=== PATIENT | female | born 1940 | race Caucasian/White ===

== ENCOUNTER 2017-04-09 12:09 | Emergency (ER) | payer MEDICARE, BC ==
[2017-04-09] MEDS ORDERED: Acetaminophen/HYDROcodone 325-5 MG Tab PO ONE (13:03)
--- NOTE | 2017-04-09 13:09 | EDM.PDOC ---
ED HPI GENERAL MEDICAL PROBLEM - General Chief Complaint: Headache Stated Complaint: HEAD PAIN Time Seen by Provider: 04/09/17 12:45 Source of Information: Reports: Patient History Limitations: Reports: No Limitations - History of Present Illness INITIAL COMMENTS - FREE TEXT/NARRATIVE: Patient is a 76-year-old female who presents to the ED complaining of posterior neck pain. Pain started this past Friday described as stiff neck and has progressively gotten worse to the point where she cannot lay flat. Pain is worsened with movement and also palpation. There is no known precipitating factor contribuiting to this. States with lying flat she has to hold her head up. States she was diagnosed the rash 2 weeks ago and was placed on prednisone and Keflex. Rash completely resolve for approximately 2 days when it came back slightly. States it was located both sides of cheek and to chest. It was not shingles. 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 States current symptoms are nothing like the brain aneurysm. She has dizziness chronically and notes mild incease with neck discomfort. Pain is described as sharp, throbbing, sensation radiating down the right trapezius. She has been utilizing ice and warm compresses with minimal improvement. She denies any fever/chills, nausea or vomiting, vision changes, headache, numbness or tingling, chest pain, SOB, or any additional complaints. Onset Date: 04/04/17 Duration: Constant, Getting Worse, Waxing/Waning Location: Reports: Neck Quality: Reports: Ache, Sharp Severity: Severe Improves with: Reports: None Worsens with: Reports: Movement Context: Reports: Other (unknown) Associated Symptoms: Reports: No Other Symptoms Treatments APPLIED RESEARCH DIRECTOR: Reports: Other (see below) (See hpi) Occipital Pain Score (Numeric/FACES): 8 - Related Data Allergies Allergy/AdvReac Type Severity Reaction Status Date / Time sulfanilamide [Sulfanilamide] Allergy Hives Verified 04/09/17 12:21 Home Meds: Home Meds Acetaminophen/HYDROcodone [[place] 325-5 MG] 1 tab PO Q6H PRN #10 tablet 04/09/17 [Rx] Cyclobenzaprine [Flexeril] 5 mg PO BID #12 tablet 04/09/17 [Rx] Past Medical History Musculoskeletal History: Reports: Other (See Below) Other Musculoskeletal History: back surgery Neurological History: Reports: Cerebral Aneurysms Other Neuro History: with surgical repair - Past Surgical History Female Surgical History: Reports: Hysterectomy Musculoskeletal Surgical History: Reports: Other (See Below) Other Musculoskeletal Surgeries/Procedures:: neck fusion, foot surgery, wrist surgery Social & Family History - Tobacco Use Smoking Status *Q: Former Smoker Used Tobacco, but Quit: Yes Month Tobacco Last Used: 2 years - Caffeine Use Caffeine Use: Reports: None - Recreational Drug Use Recreational Drug Use: No ED ROS GENERAL - Review of Systems Review Of Systems: See Below Constitutional: Denies: Fever, Chills, Decreased Appetite HEENT: Denies: Vision Change Respiratory: Denies: Shortness of Breath, Cough, Sputum Cardiovascular: Denies: Chest Pain, Dyspnea on Exertion, Lightheadedness, Palpitations GI/Abdominal: Denies: Abdominal Pain, Stool Incontinence, Vomiting Musculoskeletal: Reports: Neck Pain, Muscle Pain. Denies: Shoulder Pain, Arm Pain, Back Pain, Hand Pain Neurological: Reports: Dizziness (mild increase.). Denies: Numbness, Tingling, Difficulty Walking, Weakness Psychiatric: Reports: Anxiety ED EXAM, GENERAL - Physical Exam Exam: See Below Exam Limited By: No Limitations General Appearance: Alert, WD/WN, Mild Distress Eye Exam: Bilateral Eye: EOMI, PERRL Ears: Hearing Grossly Normal Nose: Normal Inspection Throat/Mouth: Normal Voice, No Airway Compromise Head: Atraumatic, Normocephalic Neck: Normal Inspection, Supple, Other (the pain is isolated to the base of the skull and right side of the neck with radiation down to the trapezius with palpation. Increased pain noted with turning the head to the right. There is no swelling, bruising, bony abnormalities noted. Pain is relieved with turning head to left and also attended chest. There is no pain along the cervical spine. ). No: Lymphadenopathy (L), Lymphadenopathy (R) Respiratory/Chest: No Respiratory Distress, Lungs Clear, Normal Breath Sounds, No Accessory Muscle Use Cardiovascular: Normal Peripheral Pulses, Regular Rate, Rhythm Peripheral Pulses: 2+: Radial (L), Radial (R) Back Exam: Normal Inspection, Full Range of Motion, Other (back muscles are tense) Extremities: Normal Inspection, Normal Range of Motion, Non-Tender, No Pedal Edema, Normal Capillary Refill Neurological: Alert, Oriented, CN II-XII Intact, Normal Cognition, Normal Gait, No Motor/Sensory Deficits, Other (Muscle strength upper and lower extremities bilaterally 5 over 5. Negative kernig and Babinski) Psychiatric: Normal Affect, Anxious Skin Exam: Warm, Dry, Intact, Normal Color Course - Vital Signs Last Recorded V/S: Last Vital Signs Temp 98.6 F 04/09/17 12:15 Pulse 78 04/09/17 15:40 Resp 18 04/09/17 15:40 BP 138/74 04/09/17 15:40 Pulse Ox 97 04/09/17 15:40 - Orders/Labs/Meds Orders: Active Orders 24 hr Category Date Time Status Peripheral IV Care [RC] . DIRECTED Care 04/09/17 14:16 Active Peripheral IV Insertion Adult [OM.PC] Stat Oth 04/09/17 14:16 Ordered Labs: Laboratory Tests 04/09/17 04/09/17 04/09/17 Range/Units 14:20 14:20 14:20 WBC 6.44 (3.98-10.04) K/mm3 RBC 4.82 (3.98-5.22) M/mm3 Hgb 13.7 (11.2-15.7) gm/L Hct 41.7 (34.1-44.9) % MCV 86.5 (79.4-94.8) fl MCH 28.4 (25.6-32.2) pg MCHC 32.9 (32.2-35.5) g/dl RDW Std Deviation 48.1 H (36.4-46.3) fL Plt Count 212 (182-369) K/mm3 MPV 10.9 (9.4-12.3) fl Neut % (Auto) 64.6 (34.0-71.1) % Lymph % (Auto) 26.7 (19.3-51.7) % [place] % (Auto) 5.7 (4.7-12.5) % Eos % (Auto) 2.0 (0.7-5.8) Baso % (Auto) 0.8 (0.1-1.2) % Neut # (Auto) 4.16 (1.56-6.13) K/mm3 Lymph # (Auto) 1.72 (1.18-3.74) K/mm3 [place] # (Auto) 0.37 H (0.24-0.36) K/mm3 Eos # (Auto) 0.13 (0.04-0.36) K/mm3 Baso # (Auto) 0.05 (0.01-0.08) K/mm3 ESR 25 H (0-20) mm/hr Sodium 142 (136-145) mEq/L Potassium 4.4 (3.5-5.1) mEq/L Chloride 107 (98-107) mEq/L Carbon Dioxide 27 (21-32) mEq/L Anion Gap 12.4 (5-15) BUN 16 (7-18) mg/dL Creatinine 0.7 (0.55-1.02) mg/dL Est Cr Clr Drug Dosing 60.89 mL/min Estimated GFR (MDRD) > 60 (>60) mL/min BUN/Creatinine Ratio 22.9 H (14-18) Glucose 91 (83-115) mg/dL Calcium 9.1 (8.5-10.1) mg/dL Total Bilirubin 0.4 (0.2-1.0) mg/dL AST 21 (15-37) U/L ALT 26 (14-59) U/L Alkaline Phosphatase 71 (46-116) U/L C-Reactive Protein 0.9 (<1.0) mg/dL Total Protein 7.2 (6.4-8.2) g/dl Albumin 3.4 (3.4-5.0) g/dl Globulin 3.8 gm/dL Albumin/Globulin Ratio 0.9 L (1-2) Meds: Medications Discontinued Medications Generic Name Dose Route Start Last Admin Trade Name Freq PRN Reason Stop Dose Admin Hydrocodone Bitart/Acetaminophen 1 tab 04/09/17 13:03 04/09/17 13:07 [place] 325-5 Mg PO 04/09/17 13:04 1 tab ONETIME ONE Administration Cyclobenzaprine HCl 10 mg 04/09/17 13:38 04/09/17 13:43 Flexeril PO 04/09/17 13:39 10 mg ONETIME ONE Administration Hydromorphone HCl 0.25 mg 04/09/17 15:08 04/09/17 15:22 Dilaudid IVPUSH 04/09/17 15:09 0.25 mg ONETIME ONE Administration Ketorolac Tromethamine 15 mg 04/09/17 15:27 04/09/17 15:31 Toradol IVPUSH 04/09/17 15:28 15 mg ONETIME ONE Administration Sodium Chloride 10 ml 04/09/17 14:16 04/09/17 14:23 Saline Flush FLUSH 10 ml ASDIRECTED PRN Administration Keep Vein Open - Re-Assessments/Exams Free Text/Narrative Re-Assessment/Exam: On physical examination patient has pain to the lateral aspect of the right side of her neck. Pain is reproducible and extends down into her trapezius. Pain is worsened with turning her head head to the right and decreased with turning head to left and also in the chest. There is minimal decreased range of motion noted. There is no neurological findings that are concerning at this point. See physical examination for these details. Patient has a history of aneurysm requiring coiling. Patient notes this pain is nothing like having the aneurysm. There are no known precipitating factors contributing to her discomfort. Pain did initially start with stiff neck and has moved up her neck . She has been utilizing ice and heat in alternating fashion with minimal relief. She recently completed course of prednisone for rash to chest that resolved for 2 days only to slowly come back to face and chest. Offered to obtain a CT of the head without contrast which is very sensitive for any blood within the brain. Also offered to obtain CT of the neck to evaluate for any bony abnormalities or soft tissue swelling. The patient has opted not to do this. See's Chiropractor on a regular basis but denies aggressive cervical spine manipulation. Patient wishes to start with the pain medication at this time to see if this relieves any of the discomfort. Order [place] 5/325 p.o. x1. I did discuss this with he agrees most likely muscle related. 04/09/17 13:11 04/09/17 13:42Reassessment, patient states she can feel the medication working but states the pain has not improved. Requests muscle relaxer. Will obtain CT head w/o contrast. Patient wants to hold off on obtaining CTA of the head/neck until flexeril has time to work. If no relief with the flexeril will proceed with further studies. 04/09/17 14:25 Patient has had no relief with the above therapies. She is unable to sit still due to pain. Will obtain basic labs. Ordered CT of the neck with out contrast to evaluate for disc space narrowing. Reassessment, patient is unable to lay flat. Grabs the back of her neck when attempting to lay flat. Suggesting increased CSF. This is not consistent with history. Patient did not elicit she has had previous cervical fusion. Nor did she provide that she was working in the garden bending over causing worsening in pain. 04/09/17 15:08 Reassessment, pain has minimally improved. States pain is not as sharp. Still has worsening pain with lying flat and movement to the right. Head CT impression artifact is noted above. Minimal senescent change with no acute pain seen on noncontrast head CT exam. CT cervical spine impression: Degenerative change and previous surgery. Nothing acute is seen on CT study of the cervical spine. Awaiting lab results to evaluate for inflammatory findings. Ordered dilaudid 0.25mg IVP. 04/09/17 15:15 Labs reviewed: CBC and C14 essentially normal. CRP WNL. ESR 25. Pain has drastically improved with the above therapies. She is wishing to be discharged home. Will discharge patient home with instructions as documented. Departure - Departure Time of Disposition: 15:16 Disposition: Home, Self-Care 01 Condition: good Clinical Impression: Neck pain on right side Neck muscle strain Qualifiers: Encounter type: initial encounter Qualified Code(s): S16.1XXA - Strain of muscle, fascia and tendon at neck level, initial encounter - Discharge Information Prescriptions: Acetaminophen/HYDROcodone [[place] 325-5 MG] 1 tab PO Q6H PRN #10 tablet PRN Reason: Pain (Severe 7-10) Cyclobenzaprine [Flexeril] 5 mg PO BID #12 tablet Instructions: Cervical Sprain, [id number] Referrals: Anthony Gasca MD [Primary Care Provider] - Forms: ED Department Discharge Additional Instructions: Take tylenol 650 mg and ibuprofen 600mg every 6 hours in alternating fashion for pain. Utilize warm compresses to the affected area for pain in alternating fashion with cool compresses. For severe pain take norco 5-325mg, 1 tab every 6 hours as needed. Do not take this medication with tylenol. Refrain from any aggravating activities. Followup with PCP if symptoms persist. Return to the E.D. for worsening pain, fever/chills, n/t, severe headache, n/v, vision changes. Do not drive while taking the narcotics. Nodriving today. - My Orders Last 24 Hours: My Active Orders 04/09/17 14:16 Peripheral IV Care [RC] . DIRECTED Peripheral IV Insertion Adult [OM.PC] Stat - Assessment/Plan Last 24 Hours: My Active Orders 04/09/17 14:16 Peripheral IV Care [RC] . DIRECTED Peripheral IV Insertion Adult [OM.PC] Stat
[2017-04-09] MEDS ORDERED: Cyclobenzaprine 10 MG Tab PO ONE (13:38)
--- NOTE | 2017-04-09 14:09 | CT ---
Head CT Technique: Multiple axial sections through the brain were obtained. Intravenous contrast was not utilized. Comparison: No previous intracranial imaging. Findings: Artifact noted from metallic density within the suprasellar cistern. This most likely represents an aneurysm coil. Please correlate. Ventricles along with basal cisterns and sulci over the convexities appear within normal limits for the patient's age. Minimal diminished density is noted within the periventricular white matter which is compatible with minimal small vessel ischemic demyelination change. No other abnormal parenchymal densities are seen. No evidence of intracranial hemorrhage. No midline shift or mass effect is seen. Bone window settings were reviewed which shows no discrete calvarial abnormality. Minimal mucosal thickening is noted within the left ethmoid sinus. Impression: 1. Artifact as noted above. 2. Minimal senescent change with nothing acute being seen on noncontrast head CT exam. Diagnostic code #2
[2017-04-09] MEDS ORDERED: Sodium Chloride 0.9% 10 ML Syringe FLUSH PRN (14:16)
[2017-04-09] MEDS ORDERED: HYDROmorphone 0.5 MG/0.5 ML Syringe IVPUSH ONE (15:08)
--- NOTE | 2017-04-09 15:16 | CT ---
CT cervical spine Technique: Multiple axial sections were obtained from above C1 inferiorly to the top of T2. Reconstructed sagittal and coronal images were reviewed. Comparison: No previous cervical spine imaging. Findings: Fusion noted at C5-C6 and C6-C7. Degenerative change noted between the dens and anterior arch of C1. Scattered degenerative apophyseal change seen throughout cervical spine. Mildly abnormal curvature seen due to degenerative change and previous surgery. Moderate right-sided neural foraminal stenosis noted at C3-C4. Mild left-sided neural foraminal stenosis noted at C4-C5. Mild right-sided neural foraminal stenosis noted at C6-C7. No bony central canal stenosis is seen. Cystic lesion is seen between C5-C6 which is likely chronic and due to postsurgical change. Degenerative joint space narrowing is noted within both temporomandibular joints. No acute fracture is seen. Impression: 1. Degenerative change and previous surgery. 2. Nothing acute is seen on CT study of the cervical spine. Diagnostic code #2
[2017-04-09] MEDS ORDERED: Ketorolac 15 MG/ML SDV IVPUSH ONE (15:27)
[2017-04-09 15:45] VITALS: BP 138/74
== END 2017-04-09 15:40 | disposition home or self-care (01) ==
LOC: JD.ED 12:09
DX: S16.1XXA Strain of muscle, fascia and tendon at neck level, initial encounter (principal); X58.XXXA Exposure to other specified factors, initial encounter; M43.6 Torticollis; Z98.1 Arthrodesis status; M48.02 Spinal stenosis, cervical region; M53.82 Other specified dorsopathies, cervical region; Z86.79 Personal history of other diseases of the circulatory system; Z87.891 Personal history of nicotine dependence
CPT/HCPCS: 36415; 70450; 72125; 80053; 85025; 85652; 86140; 96374; 96375; 99284; A9270; J1170; J1885; J7050

== ENCOUNTER 2018-02-17 19:41 | Emergency (ER) | payer MEDICARE, BC ==
[2018-02-17 19:59] VITALS: BP 150/79
--- NOTE | 2018-02-17 20:11 | EDM.PDOC ---
ED HPI GENERAL MEDICAL PROBLEM - General Chief Complaint: Lower Extremity Injury/Pain Stated Complaint: LEFT KNEE REPLACEMENT-SWOLLEN AND PAINFUL Time Seen by Provider: 02/17/18 20:11 Source of Information: Reports: Patient History Limitations: Reports: No Limitations - History of Present Illness INITIAL COMMENTS - FREE TEXT/NARRATIVE: 77-year-old female presents the ED for evaluation of marked swelling of her left leg from foot to groin. Patient underwent right total knee replacement by Dr. Browning the [facility] in [place] on February 09. Patient is currently in physiotherapy program and today they appreciated increased swelling and advised her to come to the ED to have it checked out to rule out a blood clot. Patient has had right total knee replaced 10 years ago without any problems. She is currently on baby aspirin twice daily postop. Onset: Gradual Onset Date: 02/10/18 Duration: Day(s):, Getting Worse Location: Reports: Lower Extremity, Left Quality: Reports: Ache Severity: Severe Improves with: Reports: None Worsens with: Reports: Movement Context: Reports: Other (Postop left total knee replacement 8 days ago). Denies : Activity, Exercise, Lifting, Sick Contact, Trauma Associated Symptoms: Reports: Other (Denied being short of breath cough or any hemoptysis. No pleuritic chest pain) Treatments OFFICIAL GREETER: Reports: Other (see below) (Just pain medications.) Left Knee Pain Score (Numeric/FACES): 7 - Related Data Allergies Allergy/AdvReac Type Severity Reaction Status Date / Time sulfanilamide [Sulfanilamide] Allergy Hives Verified 02/17/18 19:56 Home Meds: Home Meds Acetaminophen/HYDROcodone [[place] 325-5 MG] 1 tab PO Q6H PRN #10 tablet 04/09/17 [Rx] Cyclobenzaprine [Flexeril] 5 mg PO BID #12 tablet 04/09/17 [Rx] Past Medical History Respiratory History: Reports: COPD Musculoskeletal History: Reports: Other (See Below) Other Musculoskeletal History: back surgery Neurological History: Reports: Cerebral Aneurysms Other Neuro History: with surgical repair - Past Surgical History Female Surgical History: Reports: Hysterectomy Musculoskeletal Surgical History: Reports: Knee Replacement, Other (See Below) Other Musculoskeletal Surgeries/Procedures:: neck fusion, foot surgery, wrist surgery Social & Family History - Tobacco Use Smoking Status *Q: Former Smoker Used Tobacco, but Quit: No Month/Year Tobacco Last Used: 2 years - Caffeine Use Caffeine Use: Reports: None - Recreational Drug Use Recreational Drug Use: No - Living Situation & Occupation Living situation: Reports: Occupation: Retired Review of Systems - Review of Systems Review Of Systems: See Below Constitutional: Denies: Chills, Diaphoresis, Fever, Weakness, Other Eyes: Reports: No Symptoms Ears: Reports: No Symptoms Nose: Reports: No Symptoms Mouth/Throat: Reports: No Symptoms Respiratory: Reports: No Symptoms Cardiovascular: Reports: No Symptoms GI/Abdominal: Reports: No Symptoms Genitourinary: Reports: Other (Urinary frequency with some mild stress incontinence.) Musculoskeletal: Reports: Joint Pain (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 Has had previous right total knee replacement and had a left knee replaced 8 days ago.) Skin: Reports: Other (The skin of the left lower extremity is markedly black and blue and swollen. There are blisters forming on the dorsal aspect of her left foot without losing serous material yet.) Neurological: Reports: No Symptoms Psychiatric: Reports: No Symptoms ED EXAM, GENERAL - Physical Exam Exam: See Below Exam Limited By: No Limitations General Appearance: Alert, WD/WN, Anxious, Mild Distress Respiratory/Chest: No Respiratory Distress, Lungs Clear, Normal Breath Sounds, No Accessory Muscle Use Cardiovascular: Normal Peripheral Pulses, Regular Rate, Rhythm, No Edema, No Gallop, No Murmur Peripheral Pulses: 0: Posterior Tibial (L), Dorsalis Pedis (L) (Unable to palpate due to severe swelling of the foot.) Extremities: Other (I never remove the strip dressing from the wound but has been doing the dressing changes and reports that it still oozing some serous material but it does not look overly erythematous. Patient has gross edema below the knee with swelling in the popliteal fossa the catheter itself is very taut due to edema with and unable to indent the tissue much at all. There is ecchymoses and slight erythema of the entire leg down to the foot. The foot is grossly edematous with ecchymoses particularly along the medial aspect of the foot. She still has pretty good range of motion at the ankle. She has pain along the greater saphenous vein from the knee to the groin on the left leg.) Psychiatric: Normal Affect, Normal Mood Skin Exam: Warm, Dry, Intact, Normal Color, No Rash Course - Vital Signs Last Recorded V/S: Last Vital Signs Temp 36.8 C 02/17/18 19:56 Pulse 74 02/17/18 19:56 Resp 18 02/17/18 19:56 BP 150/79 H 02/17/18 19:56 Pulse Ox 95 02/17/18 19:56 - Orders/Labs/Meds Orders: Active Orders 24 hr Category Date Time Status VL Duplex Lwr Ext Veins Ltd Lt [US] Stat Exams 02/17/18 20:17 Taken - Radiology Interpretation Free Text/Narrative:: 77-year-old female presents to the ED with increased swelling in her left lower extremity post left total knee replacement 8 days ago. The leg below the knee is grossly swollen and tissue is taut due to severe edema. There is gross swelling of the dorsal aspect of her foot with some blister formation due to the intense edema. Ecchymoses along the ankle and medial aspect of the foot. Pulses are not palpable foot due to obscured by the edema. She has pain along the greater saphenous vein in the upper thigh to the groin. There is also a good deal of fluid in the popliteal fossa with tenderness on palpation. Plan Doppler ultrasound of the extremity to be done to rule out DVT. She is currently on baby aspirin twice daily for clot prevention - Re-Assessments/Exams Free Text/Narrative Re-Assessment/Exam: 02/17/18 21:40 Doppler ultrasound is been completed on the left lower extremity and does not reveal any sign of DVT. Therefore compression stocking replaced on the left leg. Stitches or lorna are to be removed next week Friday. Patient advised to elevate the leg is much as possible to get the swelling down. Right now she would be in too much pain to place AMANDA stockings on. Departure - Departure Time of Disposition: 21:41 Disposition: Home, Self-Care 01 Condition: Fair Clinical Impression: Edema of left lower extremity - Discharge Information Referrals: Anthony Gasca MD [Primary Care Provider] - Forms: ED Department Discharge Additional Instructions: Evaluation in the emergency room today in regards to severe swelling of the left lower extremity which are appreciated occurred within 2 days of having the left knee replaced last week Friday. I agree on examination there is more swelling than one would anticipate particularly below the knee with the calf muscles being quite taut and obvious swelling of the dorsal foot with early bleb formation. There is also pain along the greater saphenous vein in the upper thigh on the right side. Area this precipitated a Doppler ultrasound of the lower extremity to ensure that no blood clot has formed within the leg post operatively. The ultrasound looks excellent with no signs of blood clot and good flow throughout all of the veins. Treatment is therefore to elevate the foot is much as possible when you are at home ideally above heart level on multiple pillows. Continue pain medication as needed. - My Orders Last 24 Hours: My Active Orders 02/17/18 20:17 Duplex Lwr Ext Veins Ltd Lt [US] Stat - Assessment/Plan Last 24 Hours: My Active Orders 02/17/18 20:17 Duplex Lwr Ext Veins Ltd Lt [US] Stat
--- NOTE | 2018-02-18 08:30 | US ---
Left lower extremity deep venous ultrasound: Duplex and color flow imaging was obtained of the left common femoral, proximal greater saphenous, superficial femoral, popliteal, posterior tibial and peroneal veins. Right common femoral vein is also evaluated. Comparison: No prior venous exam. Findings: Distal superficial femoral vein not optimally seen. Normal phasic flow and augmentation is seen within the distal superficial femoral vein. Other veins show normal phasic flow, augmentation and compression. There is subcutaneous edema being seen within the ankle and calf. Impression: 1. No evidence of deep venous thrombosis. 2. Subcutaneous edema within the calf and ankle. Diagnostic code #2 I agree with preliminary report issued by [facility] ([facility] preliminary report dictated on 02/17/18, 10:31 PM Central Time)
== END 2018-02-17 22:02 | disposition home or self-care (01) ==
LOC: JD.ED 19:41
DX: R60.0 Localized edema (principal); S90.822A Blister (nonthermal), left foot, initial encounter; R23.3 Spontaneous ecchymoses; Z96.651 Presence of right artificial knee joint; Z79.82 Long term (current) use of aspirin; Z88.2 Allergy status to sulfonamides; Z79.899 Other long term (current) drug therapy; Z87.891 Personal history of nicotine dependence; Z96.652 Presence of left artificial knee joint; X58.XXXA Exposure to other specified factors, initial encounter
CPT/HCPCS: 93971-26-LT; 93971-LT; 99284; 99284-25

== ENCOUNTER → 2019-01-21 | Day surgery (SDC) | payer MEDICARE, OTHER ==
[~2019-01-21] MED LIST: Lactated Ringers 1,000 ML IV SCH; Lidocaine 1%/Sod Bicarbonate in NS 8.4% 1 ML Syringe IDERM PRN; Propofol 200 MG/20 ML SDV ONE; Sodium Chloride 0.9% 10 ML Syringe FLUSH PRN; fentaNYL 100 MCG/2 ML SDV ONE
--- NOTE | 2019-01-21 09:54 | PCM48HPAN ---
Post Anesthesia Note - EVALUATION WITHIN 48HRS OF ANESTHETIC Vital Signs in Normal Range: Yes Patient Participated in Evaluation: Yes Respiratory Function Stable: Yes Airway Patent: Yes Cardiovascular Function Stable: Yes Hydration Status Stable: Yes Pain Control Satisfactory: Yes Nausea and Vomiting Control Satisfactory: Yes Mental Status Recovered: Yes Pulse Rate: 77 SaO2: 95 Resp Rate: 14 Temperature: 36.3 C Blood Pressure: 122/58
--- NOTE | 2019-01-21 09:56 | PCM.OPNOTE ---
- General Post-Op/Procedure Note Date of Surgery/Procedure: 01/21/19 Operative Procedure(s): EGD with bx+ Pre Op Diagnosis: dysphagia Post-Op Diagnosis: Same Anesthesia Technique: MAC Primary Surgeon: Chidi Ward EBL in mLs: 0 Complications: None Condition: Good
[2019-01-21 09:57] VITALS: BP 152/82
--- NOTE | 2019-01-21 09:57 | PCM.PREANE ---
Preanesthetic Assessment - Procedure Proposed Procedure: Diagnostic EGD - Anesthesia/Transfusion/Family Hx Anesthesia History: Prior Anesthesia Without Reaction Family History of Anesthesia Reaction: No Transfusion History: No Prior Transfusion(s) - Review of Systems Pulmonary: Cough (chrnoic non productive ), Other (Asthma/ COPD, uses an inhaler daily, LEWIS- does not use a CPAP) Cardiovascular: Other (murmer) Gastrointestinal: Other (GERD, hiatal hernia ) Neurological: Other (TIA dece,2017) - Physical Assessment NPO Status Date: 01/20/19 NPO Status Time: 22:00 Pulse: 64 O2 Sat by Pulse Oximetry: 97 Respiratory Rate: 20 Blood Pressure: 152/82 Temperature: 36.3 C Vital Signs: Last Vital Signs Temp 36.3 C 01/21/19 09:53 Pulse 77 01/21/19 09:53 Resp 14 01/21/19 09:53 BP 122/58 L 01/21/19 09:53 Pulse Ox 95 01/21/19 09:53 Height: 1.63 m Weight: 90.718 kg ASA Class: 3 Mental Status: Alert & Oriented x3 Airway Class: Mallampati = 2 Dentition: Reports: Dentures (upper ) Thyro-Mental Finger Breadths: 3 Mouth Opening Finger Breadths: 3 ROM/Head Extension: Full Lungs: Clear to Auscultation, Normal Respiratory Effort Cardiovascular: Regular Rate, Regular Rhythm - Allergies Allergies/Adverse Reactions: Allergies Allergy/AdvReac Type Severity Reaction Status Date / Time adhesive tape Allergy Blisters Verified 01/21/19 09:01 sulfanilamide [Sulfanilamide] Allergy Hives Verified 01/21/19 09:01 - Blood Blood Available: No Product(s) Available: None - Anesthesia Plan Pre-Op Medication Ordered: None - Acknowledgements Anesthesia Type Planned: MAC Pt an Appropriate Candidate for the Planned Anesthesia: Yes Alternatives and Risks of Anesthesia Discussed w Pt/Guardian: Yes Pt/Guardian Understands and Agrees with Anesthesia Plan: Yes PreAnesthesia Questionnaire HEENT History: Reports: Allergic Rhinitis, Sinusitis, Other (See Below) Other HEENT History: nasal congest, wears glasses, hearing aids, dentures Cardiovascular History: Reports: Heart Murmur, High Cholesterol Respiratory History: Reports: Asthma, Bronchitis, Recurrent, COPD, SOB, Other ( See Below) Other Respiratory History: pulmonary nodule, emphysema Gastrointestinal History: Reports: Diverticulosis, Hiatal Hernia, Other (See Below) Other Gastrointestinal History: dysphagia Genitourinary History: Reports: Other (See Below) Other Genitourinary History: bladder hypertonicity, hematuria, cystoscopy with fulguration BLOW DOWN OPERATOR History: Reports: None Musculoskeletal History: Reports: Other (See Below) Other Musculoskeletal History: back surgery, hallus vagus, hallus rigidus, hallux vargus Neurological History: Reports: Cerebral Aneurysms, TIA Other Neuro History: cerebral aneurym, cerviclagia, back surgery Psychiatric History: Reports: None Endocrine/Metabolic History: Reports: None Hematologic History: Reports: None Immunologic History: Reports: None Oncologic (Cancer) History: Reports: None Dermatologic History: Reports: None - Past Surgical History Head Surgeries/Procedures: Reports: None HEENT Surgical History: Reports: None Cardiovascular Surgical History: Reports: None Respiratory Surgical History: Reports: None GI Surgical History: Reports: Colonoscopy, EGD Female Surgical History: Reports: Hysterectomy Endocrine Surgical History: Reports: None Neurological Surgical History: Reports: None Musculoskeletal Surgical History: Reports: Knee Replacement, Other (See Below) Other Musculoskeletal Surgeries/Procedures:: neck fusion, foot surgery, wrist surgery, bilateral knee replacements, bunionectomy x3, left knee arthroscopy Oncologic Surgical History: Reports: None Dermatological Surgical History: Reports: None - SUBSTANCE USE Smoking Status *Q: Former Smoker Recreational Drug Use History: No - HOME MEDS Home Medications: Home Meds Acetaminophen [Tylenol] 650 mg PO Q4H PRN 01/20/19 [History] Albuterol [Ventolin 2 MG/5 ML] 1 dose NEB ASDIRECTED PRN 01/20/19 [History] Aspirin [Halfprin] 81 mg PO DAILY 01/20/19 [History] Tenorio Flavor [Tenorio Concentrate] 100 ml PO DAILY 01/20/19 [History] Cranberry 500 mg PO DAILY 01/20/19 [History] Cyanocobalamin (Vitamin B-12) [Vitamin B-12] 5,000 mcg PO DAILY 01/20/19 [ History] Famotidine 40 mg PO BEDTIME 01/20/19 [History] Fluticasone Propionate [Flonase] 1 dose NASBOTH DAILY 01/20/19 [History] Lutein 10 mg PO DAILY 01/20/19 [History] Lysine 500 mg PO DAILY 01/20/19 [History] Tiotropium [place] [Spiriva Respimat] 2 puff INH BID 01/20/19 [History] Ubidecarenone [Coq-10] 100 mg PO DAILY 01/20/19 [History] - CURRENT (IN HOUSE) MEDS Current Meds: Current Medications Lactated Ringer's (Ringers, Lactated) 1,000 mls @ 125 mls/hr IV ASDIRECTED GITA Stop: 01/21/19 23:00 Lidocaine/Sodium Bicarbonate (Buffered Lidocaine 1% In Ns 8.4%) 0.25 ml IDERM ONETIME PRN PRN Reason: Prior to IV Start Stop: 01/21/19 23:00 Sodium Chloride (Saline Flush) 10 ml FLUSH ASDIRECTED PRN PRN Reason: Keep Vein Open Stop: 01/21/19 23:00 Discontinued Medications Fentanyl (Sublimaze) Confirm Administered Dose 100 mcg .ROUTE .STK-MED ONE Stop: 01/21/19 07:22 Propofol (Diprivan 20 Ml) Confirm Administered Dose 200 mg .ROUTE .STK-MED ONE Stop: 01/21/19 07:22
--- NOTE | 2019-01-22 06:31 | OR ---
DATE OF OPERATION: 01/21/2019 SURGEON: Chidi Ward MD PREOPERATIVE DIAGNOSIS: Dysphagia. POSTOPERATIVE DIAGNOSIS: Dysphagia. PROCEDURE: Esophagogastroduodenoscopy with biopsy done under IV sedation. FINDINGS: Some erythematous streaking in the body and antrum of the stomach, biopsies were taken. There was a large hiatal hernia with the GE junction located at 30 cm with a short esophagus. The GE junction was free of any acute process. The hiatal hernia pouch itself along the edges did not show any pathology. Balance of the esophagus and the second portion of the duodenum, duodenal bulb, pyloric channel were normal. DESCRIPTION OF PROCEDURE: The patient was taken to the endoscopy room, placed in a supine position, connected to monitoring equipment, given IV sedation, placed in the left lateral position. Bite block was inserted and video Olympus gastroscope was placed in the posterior oropharynx under direct vision and threaded past the cricopharyngeus carefully. Down the esophagus into the stomach, stomach was insufflated, and the scope passed through the pylorus and second portion of the duodenum. Second portion of the duodenum was viewed and the endoscope was slowly withdrawn showing the second portion of the duodenum, duodenal bulb, and pyloric channel were unremarkable. There was some as I stated erythematous streaking in the antrum and some of the body and this was biopsied. J-maneuver demonstrated a large hiatal hernia in which we could see the GE junction now. The scope was withdrawn, the hiatal hernia pouch was unremarkable as was the GE junction. The rest of the esophagus was viewed and the scope withdrawn was normal. The patient tolerated the procedure and sent to recovery room in a stable condition to be followed up in the clinic. OPERATION PERFORMED: ANESTHESIA: ESTIMATED BLOOD LOSS: MMODAL /[id number]
== END | disposition home or self-care (01) ==
LOC: JD.SDS 08:07
PROVIDERS: ATTEND Surgery
DX: R13.10 Dysphagia, unspecified (principal); K29.50 Unspecified chronic gastritis without bleeding; K44.9 Diaphragmatic hernia without obstruction or gangrene; K31.9 Disease of stomach and duodenum, unspecified; I69.339 Monoplegia of upper limb following cerebral infarction affecting unspecified side; J44.9 Chronic obstructive pulmonary disease, unspecified; G47.33 Obstructive sleep apnea (adult) (pediatric); Z87.891 Personal history of nicotine dependence; Z79.899 Other long term (current) drug therapy; Z79.82 Long term (current) use of aspirin
CPT/HCPCS: 43239; J2704; J3010; J7120; 00731

== ENCOUNTER 2020-03-20 14:39 | Emergency (ER) | payer MEDICARE, OTHER ==
--- NOTE | 2020-03-20 15:51 | EDM.PDOC ---
ED HPI GENERAL MEDICAL PROBLEM - General Chief Complaint: Neurological Problem Stated Complaint: UNABLE TO EAT/MEMORY LOSS Time Seen by Provider: 03/20/20 14:53 Source of Information: Reports: Patient History Limitations: Reports: No Limitations - History of Present Illness INITIAL COMMENTS - FREE TEXT/NARRATIVE: Mrs. Piña is a very pleasant 79-year-old woman with a past medical history significant for a TIA, with 1 to 2 days of left hemiparesis in October 2018, a cerebral aneurysm status-post coiling in 2007 or 2008, COPD, and rheumatoid arthritis, for which she takes oral prednisone, who now presents to the ED stating that she felt confused after she took a nap on , 03/16/2020. She states that she woke up on the floor, and felt chilled. She has also been experiencing a headache with "razor lights flashing", trouble walking due to feeling lightheaded and off-balance with generalized weakness and no energy, decreased appetite to solid food, watery diarrhea and nausea, and foul-smelling urine, all since , 03/16/2020. She denies dysuria or urinary frequency. No recent fever. No chest pain, palpitations, dyspnea, or cough. No abdominal pain. No focal or unilateral weakness. No prior similar symptoms. The patient states that she was afraid to come into the ED, but came today because "I just cannot handle it no more". She states that she was brought to the ED by a neighbor. Here in the ED, the patient is found to be hemodynamically stable, afebrile, saturating 96% on room air. The patient's PCP is Dr. Anthony Gasca. Her Patient Access Coordinator is Dr. Jennifer Venegas. Her Bingo Clerk is Dr. Alison Goldberg. Her Manager Wellness is Dr. Prince Russ. - Related Data Allergies Allergy/AdvReac Type Severity Reaction Status Date / Time adhesive tape Allergy Severe Blisters Verified 03/20/20 14:57 Sulfa (Sulfonamide Allergy Severe Cannot Verified 03/20/20 14:57 Antibiotics) Remember Home Meds: Home Meds Famotidine [Pepcid] 20 mg PO DAILY 03/20/20 [History] predniSONE [Prednisone] 1 tab PO ASDIRECTED 03/20/20 [History] Past Medical History HEENT History: Reports: Allergic Rhinitis, Hard of Hearing, Other (See Below) Other HEENT History: wears glasses, hearing aids, dentures Cardiovascular History: Reports: High Cholesterol (untreated) Respiratory History: Reports: COPD Gastrointestinal History: Reports: GERD, Hiatal Hernia Musculoskeletal History: Reports: RA Neurological History: Reports: Cerebral Aneurysms (s/p coiling), TIA (Oct 2018) - Past Surgical History HEENT Surgical History: Reports: Adenoidectomy, Oral Surgery (Dental extractions ), Tonsillectomy Cardiovascular Surgical History: Reports: Aneurysm (cerebral, coil 2007 or 2008) GI Surgical History: Reports: Appendectomy, Colonoscopy, EGD Female Surgical History: Reports: Hysterectomy (partial), Tubal Ligation Neurological Surgical History: Reports: C-Spine (ACDF) Musculoskeletal Surgical History: Reports: Arthroscopic Knee (left), Knee Replacement (bilateral), Other (See Below) (Right bunionectomy. Left foot surgery) Social & Family History - Tobacco Use Smoking Status *Q: Former Smoker Years of Tobacco use: 61 Packs/Tins Daily: 1 Month/Year Tobacco Last Used: Quit 2015 - Caffeine Use Caffeine Use: Reports: None - Alcohol Use Alcohol Use History: Yes Alcohol Use Frequency: Rarely - Recreational Drug Use Recreational Drug Use: No - Living Situation & Occupation Living situation: Reports: , with Spouse Occupation: Retired ED ROS GENERAL - Review of Systems Review Of Systems: Comprehensive ROS is negative, except as noted in HPI. ED EXAM, GENERAL - Physical Exam Exam: See Below Exam Limited By: No Limitations General Appearance: Alert, WD/WN, No Apparent Distress Eye Exam: Bilateral Eye: EOMI, Normal Inspection, PERRL Ears: Normal External Exam, Normal Canal, Normal TMs, Hearing Loss, Other ( Right hearing aid) Nose: Normal Inspection, Normal Mucosa, No Blood Throat/Mouth: Normal Inspection, Normal Lips, Normal Gums, Normal Oropharynx, Normal Voice, No Airway Compromise, Other (Dentures) Head: Atraumatic, Normocephalic Neck: Normal Inspection, Supple, Non-Tender, Full Range of Motion. No: Lymphadenopathy (L), Lymphadenopathy (R) Respiratory/Chest: No Respiratory Distress, Lungs Clear, Normal Breath Sounds, No Accessory Muscle Use Cardiovascular: Normal Peripheral Pulses, Regular Rate, Rhythm, No Edema, No Gallop, No JVD, No Murmur, No Rub Peripheral Pulses: 4+: Radial (L), Radial (R) GI/Abdominal: Normal Bowel Sounds, Soft, Non-Tender, No Organomegaly, No Distention, No Abnormal Bruit, No Mass (Female) Exam: Deferred Rectal (Female) Exam: Deferred Back Exam: Normal Inspection, Full Range of Motion, NT Extremities: Normal Inspection, Normal Range of Motion, No Pedal Edema, Normal Capillary Refill Neurological: Alert, Oriented, CN II-XII Intact, Normal Cognition, No Motor/ Sensory Deficits, Other (Generally weak, but no focal weakness) Psychiatric: Normal Affect Skin Exam: Warm, Dry, Intact, Normal Color, No Rash EKG INTERPRETATION EKG Date: 03/20/20 Time: 15:46 Rhythm: NSR Rate (Beats/Min): 83 Newcomb: Normal P-Wave: Present QRS: Normal ST-T: Other (J-point elevation anterolateral leads, but no T wave inversions to suggest ischemic changes) QT: Prolonged (QTc 520 ms) Comparison: NA - No Prior EKG Course - Vital Signs Last Recorded V/S: Last Vital Signs Temp 36.3 C 03/20/20 14:52 Pulse 68 03/20/20 17:33 Resp 18 03/20/20 14:52 BP 104/46 L 03/20/20 17:33 Pulse Ox 96 03/20/20 14:52 Orthostatic Blood Pressure [ 106/57 Standing] Orthostatic Blood Pressure [ 108/58 Supine] - Orders/Labs/Meds Orders: Active Orders 24 hr Category Date Time Status EKG Documentation Completion [RC] STAT Care 03/20/20 15:35 Active Orthostatic Vital Signs [RC] STAT Care 03/20/20 15:39 Active CULTURE URINE [RM] Stat Lab 03/20/20 16:48 Ordered Heparin Sodium/D5W [Heparin 25,000 Units in D5W 500 ML] Med 03/20/20 16:45 Active 25,000 units in 500 ml IV TITRATE Medication Orders Heparin Sodium/Dextrose (Heparin 25,000 Units In D5w 500 Ml) 25,000 units in 500 mls @ 20 mls/hr IV TITRATE GITA; Protocol Last Admin: 03/20/20 16:55 Dose: 1,000 units/hr, 20 mls/hr Labs: Laboratory Tests 03/20/20 03/20/20 03/20/20 Range/Units 15:49 15:49 15:55 WBC 7.13 (3.98-10.04) K/mm3 RBC 4.73 (3.98-5.22) M/mm3 Hgb 11.4 D (11.2-15.7) gm/dl Hct 36.9 (34.1-44.9) % MCV 78.0 L D (79.4-94.8) fl MCH 24.1 L (25.6-32.2) pg MCHC 30.9 L (32.2-35.5) g/dl RDW Std Deviation 55.6 H (36.4-46.3) fL Plt Count 230 (182-369) K/mm3 MPV 11.3 (9.4-12.3) fl Neutrophils % (Manual) 93 H (40-60) % Band Neutrophils % 0 (0-10) % Lymphocytes % (Manual) 2 L (20-40) % Atypical Lymphs % 0 % Monocytes % (Manual) 5 (2-10) % Eosinophils % (Manual) 0 L (0.7-5.8) % Basophils % (Manual) 0 L (0.1-1.2) Toxic Granulation 2+ moderate Platelet Estimate Adequate Plt Morphology Comment Normal Poikilocytosis 1+ slight Anisocytosis 1+ slight RBC Morph Comment Not Reportable Sodium 142 (136-145) mEq/L Potassium 3.6 (3.5-5.1) mEq/L Chloride 104 (98-107) mEq/L Carbon Dioxide 26 (21-32) mEq/L Anion Gap 15.6 H (5-15) BUN 18 (7-18) mg/dL Creatinine 0.9 (0.55-1.02) mg/dL Est Cr Clr Drug Dosing 45.20 mL/min Estimated GFR (MDRD) > 60 (>60) mL/min BUN/Creatinine Ratio 20.0 H (14-18) Glucose 99 (83-115) mg/dL Calcium 8.6 (8.5-10.1) mg/dL Magnesium 1.8 (1.8-2.4) mg/dl Total Bilirubin 0.6 (0.2-1.0) mg/dL AST 38 H (15-37) U/L ALT 30 (14-59) U/L Alkaline Phosphatase 62 (46-116) U/L Troponin I 0.343 H* (0.00-0.056) ng/mL Total Protein 6.7 (6.4-8.2) g/dl Albumin 2.6 L (3.4-5.0) g/dl Globulin 4.1 gm/dL Albumin/Globulin Ratio 0.6 L (1-2) TSH 3rd Generation 1.758 (0.358-3.74) uIU/mL Urine Color Yellow (Yellow) Urine Appearance Slt cloudy H (Clear) Urine pH 6.0 (5.0-8.0) Ur Specific Martin 1.020 (1.005-1.030) Urine Protein Negative (Negative) Urine Glucose (UA) Negative (Negative) Urine Ketones Trace H (Negative) Urine Occult Blood 2+ H (Negative) Urine Nitrite Positive H (Negative) Urine Bilirubin Negative (Negative) Urine Urobilinogen 0.2 (0.2-1.0) Ur Leukocyte Esterase 1+ H (Negative) Urine RBC 0-5 (0-5) /hpf Urine WBC 30-40 H (0-5) /hpf Ur Squamous Epith Cells 10-20 H (0-5) /hpf Urine Bacteria Many H (FEW) /hpf Urine Mucus Not seen (FEW) /hpf // Range/Units 17:40 WBC (3.98-10.04) K/mm3 RBC (3.98-5.22) M/mm3 Hgb (11.2-15.7) gm/dl Hct (34.1-44.9) % MCV (79.4-94.8) fl MCH (25.6-32.2) pg MCHC (32.2-35.5) g/dl RDW Std Deviation (36.4-46.3) fL Plt Count (182-369) K/mm3 MPV (9.4-12.3) fl Neutrophils % (Manual) (40-60) % Band Neutrophils % (0-10) % Lymphocytes % (Manual) (20-40) % Atypical Lymphs % % Monocytes % (Manual) (2-10) % Eosinophils % (Manual) (0.7-5.8) % Basophils % (Manual) (0.1-1.2) Toxic Granulation Platelet Estimate Plt Morphology Comment Poikilocytosis Anisocytosis RBC Morph Comment Sodium (136-145) mEq/L Potassium (3.5-5.1) mEq/L Chloride (98-107) mEq/L Carbon Dioxide (21-32) mEq/L Anion Gap (5-15) BUN (7-18) mg/dL Creatinine (0.55-1.02) mg/dL Est Cr Clr Drug Dosing mL/min Estimated GFR (MDRD) (>60) mL/min BUN/Creatinine Ratio (14-18) Glucose (83-115) mg/dL Calcium (8.5-10.1) mg/dL Magnesium (1.8-2.4) mg/dl Total Bilirubin (0.2-1.0) mg/dL AST (15-37) U/L ALT (14-59) U/L Alkaline Phosphatase (46-116) U/L Troponin I 0.357 H* (0.00-0.056) ng/mL Total Protein (6.4-8.2) g/dl Albumin (3.4-5.0) g/dl Globulin gm/dL Albumin/Globulin Ratio (1-2) TSH 3rd Generation (0.358-3.74) uIU/mL Urine Color (Yellow) Urine Appearance (Clear) Urine pH (5.0-8.0) Ur Specific Martin (1.005-1.030) Urine Protein (Negative) Urine Glucose (UA) (Negative) Urine Ketones (Negative) Urine Occult Blood (Negative) Urine Nitrite (Negative) Urine Bilirubin (Negative) Urine Urobilinogen (0.2-1.0) Ur Leukocyte Esterase (Negative) Urine RBC (0-5) /hpf Urine WBC (0-5) /hpf Ur Squamous Epith Cells (0-5) /hpf Urine Bacteria (FEW) /hpf Urine Mucus (FEW) /hpf Meds: Medications Generic Name Dose Route Start Last Admin Trade Name Freq PRN Reason Stop Dose Admin Heparin Sodium/Dextrose 25,000 units in 500 mls @ 20 mls/hr 03/20/20 16:45 16:55 Heparin 25,000 Units In D5w 500 Ml IV 1,000 units/hr TITRATE GITA 20 mls/hr Administration Protocol 1,000 UNITS/HR Discontinued Medications Generic Name Dose Route Start Last Admin Trade Name Freq PRN Reason Stop Dose Admin Aspirin 324 mg 03/20/20 16:42 03/20/20 16:56 Aspirin PO 03/20/20 16:43 324 mg ONETIME STA Administration Heparin Sodium (Porcine) 4,000 units 03/20/20 16:42 03/20/20 16:55 Heparin Sodium IVPUSH 03/20/20 16:43 4,000 units .BOLUS STA Administration Metoprolol Tartrate 5 mg 03/20/20 16:42 03/20/20 16:57 Lopressor IVPUSH 03/20/20 16:43 5 mg ONETIME ONE Administration Metoprolol Tartrate 5 mg 03/20/20 17:09 03/20/20 17:17 Lopressor IVPUSH 03/20/20 17:10 5 mg ONETIME STA Administration Metoprolol Tartrate 5 mg 03/20/20 17:09 03/20/20 17:33 Lopressor IVPUSH 03/20/20 17:10 5 mg ONETIME STA Administration Nitrofurantoin Macrocrystals 100 mg 03/20/20 16:49 03/20/20 17:36 Macrobid PO 03/20/20 16:50 100 mg ONETIME STA Administration - Re-Assessments/Exams Free Text/Narrative Re-Assessment/Exam: 03/20/20 15:40 As above, the patient has been experiencing a headache, generalized weakness and fatigue, lightheadedness, decreased appetite, nausea, watery diarrhea, and a foul-smelling odor, all since , 03/16/2020, and all developing after she woke up confused, on the floor, with chills. I have ordered a work-up that includes blood work, orthostatics, a urinalysis, a chest x-ray, and an ECG. 03/20/20 16:10 The patient is not orthostatic. Two-view chest radiograph reviewed. The cardiac silhouette is within normal limits. No pulmonary vascular congestion. No pleural effusions. No focal infiltrate however, there does appear to be some platelike atelectasis at the left base. No pneumothorax. Hiatal hernia noted. There is hyperinflation and bilateral diaphragmatic flattening, consistent with COPD. Formal read per the Radiologist pending. 03/20/20 16:45 The patient's CBC is unremarkable. Her CMP is remarkable for an anion gap slightly elevated at 15.6, but with a bicarbonate normal at 26, and the remainder of her CMP being unremarkable. Her magnesium level is within normal limits at 1.8. Her troponin is elevated at 0.343. Her TSH is within normal limits at 1.758. Her urinalysis is remarkable for slightly cloudy appearance, 2+ occult blood with 0-5 RBCs, 1+ leukocyte esterase with 30-40 WBCs, nitrite positive with many bacteria, and 10-20 squamous epithelial cells. Based on the above, I have ordered 4 tablets of baby aspirin, 5 mg of IV Lopressor, a 4000 unit bolus of heparin, to be followed by a heparin drip at 1000 units/h. The patient will require transfer to [facility]. The patient may also have a UTI. I have ordered a urine culture, and will start the patient on nitrofurantoin. 03/20/20 16:53 The above situation was discussed with the patient. She is agreeable to transfer, but has no preference as to [facility] versus [facility]. 03/20/20 16:57 Chest x-ray images pushed to [facility] at 16:57. 03/20/20 17:27 [facility] contacted at 16:55, however, the Hospitalist was unavailable. Called back by [facility] at 17:20. Case discussed with Dr. Alston, Hospitalist at [facility]. He would like us to repeat a troponin, to confirm that it is elevated, but, if elevated, he accepted the patient for transfer to their facility. I will call them back with the repeat troponin results, once available. 03/20/20 18:18 Repeat troponin remains elevated at 0.357. 03/20/20 18:28 Case discussed with [facility] at 18:28. She then discussed the case with Dr. Licona, the [facility] Hospitalist, who accepted the patient at 18:26. Patient will be transported by ground ambulance. The patient has received a second and third dose of Lopressor 5 mg IVP. Departure - Departure Time of Disposition: 18:30 Disposition: DC/Tfer to [facility] 02 Clinical Impression: Prolonged Q-T interval on ECG, Non-STEMI (non-ST elevated myocardial infarction ) - Discharge Information *PRESCRIPTION DRUG MONITORING PROGRAM REVIEWED*: Not Applicable *COPY OF PRESCRIPTION DRUG MONITORING REPORT IN PATIENT BALJIT: Not Applicable Referrals: Anthony Gasca MD [Primary Care Provider] - Jennifer Venegas MD [Ordering Only Provider] - Alison Goldberg Om, MD [Ordering Only Provider] - Prince Russ MD [Ordering Only Provider] - Forms: ED Department Discharge Sepsis Event Note - Evaluation Sepsis Screening Result: No Definite Risk - Focused Exam Vital Signs: Vital Signs Temp Pulse Pulse Resp BP BP Pulse Ox 03/20/20 17:33 68 104/46 L 03/20/20 17:17 71 92/67 03/20/20 16:57 78 107/50 L 03/20/20 14:52 36.3 C 80 18 111/57 L 96 Date Exam was Performed: 03/20/20 Time Exam was Performed: 18:52 - My Orders Last 24 Hours: My Active Orders 03/20/20 15:35 EKG Documentation Completion [RC] STAT 03/20/20 15:39 Orthostatic Vital Signs [RC] STAT 03/20/20 16:45 Heparin Sodium/D5W [Heparin 25,000 Units in D5W 500 ML] 25,000 units in 500 ml IV TITRATE 03/20/20 16:48 CULTURE URINE [RM] Stat - Assessment/Plan Last 24 Hours: My Active Orders 03/20/20 15:35 EKG Documentation Completion [RC] STAT 03/20/20 15:39 Orthostatic Vital Signs [RC] STAT 03/20/20 16:45 Heparin Sodium/D5W [Heparin 25,000 Units in D5W 500 ML] 25,000 units in 500 ml IV TITRATE 03/20/20 16:48 CULTURE URINE [RM] Stat
--- NOTE | 2020-03-20 16:17 | CR ---
Chest: 2 views of the chest were. Comparison: Previous chest CT study of 02/19/16. Moderately large hiatal hernia is noted. Slight atelectasis or scarring is seen within the left base. Lungs otherwise are clear with no acute parenchymal change. Diaphragms are slightly flattened suggestings an element of emphysematous change. Diffuse disc space narrowing and endplate spurring is noted within the spine. Mild scattered compression deformities are seen which are felt to be chronic. Impression: 1. Multiple findings as noted above. 2. Nothing acute is identified. Diagnostic code #2 This report was dictated in MDT
[2020-03-20] MEDS ORDERED: Aspirin 81 MG Tab.Chew PO STA (16:42)
[2020-03-20] MEDS ORDERED: Heparin Sodium 5,000 Units/ML Vial IVPUSH STA (16:42)
[2020-03-20] MEDS ORDERED: Metoprolol Tartrate 5 MG/5 ML SDV IVPUSH ONE (16:42)
[2020-03-20] MEDS ORDERED: Heparin Sodium/D5W 25,000 UNITS/500 ML BAG IV SCH (16:45)
[2020-03-20] MEDS ORDERED: Nitrofurantoin Monohydrate/Macrocrystalline 100 MG Cap PO STA (16:49)
[2020-03-20] MEDS ORDERED: Metoprolol Tartrate 5 MG/5 ML SDV IVPUSH STA ×2 (17:09)
[2020-03-20 19:12] VITALS: BP 101/43; PULSE 70
== END 2020-03-20 19:00 ==
LOC: JD.ED 14:39
DX: I21.4 Non-ST elevation (NSTEMI) myocardial infarction (principal); I45.81 Long QT syndrome; K21.9 Gastro-esophageal reflux disease without esophagitis; Z87.891 Personal history of nicotine dependence; Z91.048 Other nonmedicinal substance allergy status; Z88.2 Allergy status to sulfonamides; Z79.899 Other long term (current) drug therapy
CPT/HCPCS: 36415; 71046; 80053; 81001; 83735; 84443; 84484; 85007; 85027; 87086; 87088; 87186; 93005; 96365; 96366; 96375; 96376; 99285; A9270; J1644; J3490; 93010

== ENCOUNTER → 2021-12-04 | Day surgery (SDC) | payer MEDICARE, OTHER ==
[~2021-12-04] MED LIST changes: -Lactated Ringers 1,000 ML IV SCH; -Lidocaine 1%/Sod Bicarbonate in NS 8.4% 1 ML Syringe IDERM PRN; +Polymyxin B/Trimethoprim 10 ML Bottle EYERT SCH; -Propofol 200 MG/20 ML SDV ONE; -Sodium Chloride 0.9% 10 ML Syringe FLUSH PRN; -fentaNYL 100 MCG/2 ML SDV ONE
[2021-12-04] MEDS: Ofloxacin 0.3% Ophth Soln 5 ML Bottle EYERT SCH ×4 (07:22→08:42)
[2021-12-04] MEDS: Brimonidine 0.2% Ophth Soln 5 ML Bottle EYERT SCH ×4 (07:25→08:42)
[2021-12-04] MEDS: Phenylephrine 2.5% Ophth Soln 2 ML Bot EYERT SCH ×6 (07:27→08:33)
[2021-12-04] MEDS: Tropicamide 1% Ophth Soln 15 ML Bottle EYERT SCH ×4 (07:32→07:59)
[2021-12-04] MEDS: Tetracaine HCl/PF 0.5% 4 ML Bottle EYEBOTH SCH ×5 (08:01→08:34)
[2021-12-04] MEDS: Lidocaine 1% PF 2 ML SDV INJECT SCH ×2 (08:27→08:34)
[2021-12-04] MEDS: Cefuroxime 10 MG/ML SYRINGE EYERT SCH ×2 (08:34→08:41)
[2021-12-04] MEDS: Pilocarpine 4% Ophth Soln 15 ML Bot EYERT SCH ×2 (08:35→08:42)
[2021-12-04 09:04] VITALS: BP 145/65; PULSE 54
== END ==
LOC: JD.SDS 07:42
PROVIDERS: ATTEND Ophthalmology
DX: H25.813 Combined forms of age-related cataract, bilateral (principal); J44.9 Chronic obstructive pulmonary disease, unspecified; E78.00 Pure hypercholesterolemia, unspecified; K21.9 Gastro-esophageal reflux disease without esophagitis; Z87.891 Personal history of nicotine dependence; Z90.49 Acquired absence of other specified parts of digestive tract; Z98.890 Other specified postprocedural states; Z88.2 Allergy status to sulfonamides; Z86.73 Personal history of transient ischemic attack (TIA), and cerebral infarction without residual deficits; Z79.899 Other long term (current) drug therapy
CPT/HCPCS: A9270-GY; C1780; J0697

== ENCOUNTER 2022-01-10 07:33 | Day surgery (SDC) | payer MEDICARE, OTHER ==
[~2022-01-10 07:33] MED LIST changes: +Cefuroxime 10 MG/ML SYRINGE EYELF SCH; +Lidocaine 1% PF 2 ML SDV INJECT SCH; +Pilocarpine 4% Ophth Soln 15 ML Bot EYELF SCH; +Polymyxin B/Trimethoprim 10 ML Bottle EYELF SCH; -Polymyxin B/Trimethoprim 10 ML Bottle EYERT SCH
[2022-01-10] MEDS: Ofloxacin 0.3% Ophth Soln 5 ML Bottle EYELF SCH ×3 (07:40→09:05)
[2022-01-10] MEDS: Brimonidine 0.2% Ophth Soln 5 ML Bottle EYELF SCH ×3 (07:47→09:05)
[2022-01-10] MEDS: Phenylephrine 2.5% Ophth Soln 2 ML Bot EYELF SCH ×5 (07:50→08:47)
[2022-01-10] MEDS: Tropicamide 1% Ophth Soln 15 ML Bottle EYELF SCH ×4 (07:59→08:36)
[2022-01-10] MEDS: Tetracaine HCl/PF 0.5% 4 ML Bottle EYEBOTH SCH ×2 (08:41→08:52)
[2022-01-10 09:16] VITALS: BP 155/77; PULSE 64
== END 2022-01-10 09:13 | disposition home or self-care (01) ==
LOC: JD.SDS 07:33
PROVIDERS: ATTEND Ophthalmology
DX: H26.9 Unspecified cataract (principal); J44.9 Chronic obstructive pulmonary disease, unspecified; E78.00 Pure hypercholesterolemia, unspecified; Z86.73 Personal history of transient ischemic attack (TIA), and cerebral infarction without residual deficits; Z91.09 Other allergy status, other than to drugs and biological substances; Z88.2 Allergy status to sulfonamides; Z98.890 Other specified postprocedural states; Z79.899 Other long term (current) drug therapy
CPT/HCPCS: 66984; J0697; A9270-GY; C1780